=== PATIENT | male | born 1960 | race Caucasian/White ===

== ENCOUNTER → 2017-04-02 | Outpatient (CLI) | payer BC, OTHER ==
[~2017-04-02] MED LIST: COUMADIN7.5 MG PO; DIOVAN320 MG PO; HUMALOG100 UNIT/2 SQ; LANTUS SUBQ; MULTAQ 400 MG400 MG PO; NORVASC5 MG PO; PRAVACHOL40 MG PO; TOPROL XL25 MG PO
--- NOTE | ~2017-04-02 | EKG ---
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 Electronically Signed On 04-02-2017 12:52:16 CDT by Bishop Kohli [email or web address] <ELECTRONICALLY SIGNED> By: Bishop Kohli MD 04/02/17 1252 1037 Alicia Kohli MD /KIM
== END ==
LOC: CATH 06:50 → OR 09:41 → CATH 10:05 → OR 14:28
DX: I48.91 Unspecified atrial fibrillation (principal)

== ENCOUNTER 2017-06-15 06:47 | Observation (INO) | payer BC, OTHER ==
[~2017-06-15] VITALS: Ht 175.3 cm; Wt 99.2 kg
[2017-06-15] VITALS (10 sets, daily range): BP systolic 122–155; BP diastolic 70–80
--- NOTE | ~2017-06-15 | P ---
[facility] [place] [address] PROCEDURE REPORT Name: SARY ANDERS Room #: 219-P [facility] Roney M.RLucy#: [id number] Admission: 06/15/17 Attend Phys: Bishop Kohli MD Discharge: 06/16/17 Date of : 58 Report #: [id number] THIS REPORT FOR: //name// CC: Josh Arnold PREOPERATIVE DIAGNOSES: 1. Atrial fibrillation. 2. Atypical atrial flutter. PROCEDURES PERFORMED: 1. AFib ablation, CPT Code 23576. 2. 3D mapping, CPT Code 76733. 3. Intracardiac echocardiography, CPT code 66381. HISTORY: The patient is a 57-year-old male with a history of severe mitral regurgitation and atrial fibrillation who is status post mitral valve repair with a cryomaze procedure performed several years ago. More recently, he had a diagnosis of typical atrial flutter and underwent successful atrial flutter ablation by Dr. Becerra at [facility]. At that time, they also were able to induce typical AV cassius reentrant tachycardia. He had done well until recently when he started having recurrent arrhythmias. These appeared to be atrial flutter, but it is unclear if these were left or right-sided. He has failed antiarrhythmic drugs and he is here for a repeat ablation. ANESTHESIA: The patient underwent general anesthesia with no anesthesia-related complications. DESCRIPTION OF PROCEDURE: The patient underwent informed consent where we discussed the details of the procedure including the risks, which include but are not limited to bleeding, vascular damage, cardiac perforation, stroke, [place] as well as damage to the [place] conduction system requiring permanent pacemaker. He understood these risks and was willing to proceed. As such, he was brought to the EP laboratory in a fasting and sedated state and prepped and draped in a sterile fashion. I obtained access to the right femoral vein times 3, placing an 8-Romanian, 6-Romanian and 7-Romanian locking sheath into the right femoral vein using the modified Seldinger technique. At baseline, the patient was in atrial flutter with an atrial cycle length of 230 milliseconds. The flutter waves were positive in leads II, III and aVF. I placed a decapolar catheter into the coronary sinus. This was clearly a left-sided atrial flutter with the earliest atrial signal noted at CS3-4. I performed atrial entrainment from the CS9-10, CS1-2 and C3-4 and the PPI minus tachycardia cycle length was 100 milliseconds. Given that this appeared to be a left-sided atrial flutter, the patient was prepped for a transseptal An ICE catheter was placed into the right atrium and I created a 3D geometry using CartoSound with evidence of the left-sided veins [facility] [address] [place] [address] PROCEDURE REPORT Name: SARY ANDERS Room #: 219-P DEMIAN Colón#: [id number] Admission: 06/15/17 Attend Phys: Bishop Kohli MD Discharge: 06/16/17 Date of : 58 Report #: [id number] sharing almost a common ostium and then there were two right-sided veins. There was a large left atrial appendage. The patient was systemically heparinized and a transseptal was performed using an SL1 sheath and [place]ios needle. Next, I performed a 3D map of the left atrium and performed an activation map of the tachycardia. I also performed atrial entrainment from the pulmonary veins. The PPI minus tachycardia cycle length from the left-sided veins was 100 milliseconds. It was also 100 milliseconds from the right superior pulmonary vein, but pacing from the right inferior pulmonary vein the PPI minus tachycardia cycle length was 0. As such, it appeared that this was likely the location where this atrial flutter was occurring. However, there was clearly evidence that the left-sided veins and the right-sided veins were all reconnected. As such, I decided to re-isolate all the veins. Next, I exchanged the SL1 sheath for the cryo sheath and placed the cryoballoon into the left atrium. The left-sided veins required a total of 4 freezes with isolation with entrance and exit block noted. I turned my attention to the right superior pulmonary vein and I performed 2 freezes in this vein. The vein isolated within 100 seconds of the second freeze. Next, I turned my attention to the right inferior pulmonary vein and I performed two 4-minute freezes in this vein. Within 60 seconds of the first freeze of the right inferior pulmonary vein, the atrial flutter slowed and terminated. I made sure that on the right inferior pulmonary vein that I focused on isolating the inferior aspect of this vein as this was clearly where the breakthrough was occurring based on the Lasso at the beginning of the case. Now that the patient was in sinus rhythm, we performed a basic EP study and AV block was noted at 370 milliseconds, AV cassius ERP was noted at 320 milliseconds at a 500-millisecond basic drive cycle length. Triple atrial extrastimuli were delivered, and I could not induce any SVT nor any atrial flutters. Atrial burst pacing was performed down to 230 milliseconds and there was no AFib or atrial flutter. All veins were re-interrogated and demonstrated entrance and exit block. As such, the procedure was concluded. I verified using intracardiac ultrasound that there was no pericardial effusion. The patient received systemic protamine and once the ACT was within acceptable range, catheters and sheaths were pulled, hemostasis was obtained and the patient awoke neurologically and hemodynamically intact. CONCLUSIONS: 1. Successful atrial fibrillation ablation with re-isolation of the pulmonary veins. 2. Successful ablation of an atypical atrial flutter that was arising from the right inferior pulmonary vein. 3. Normal SA cassius function. 4. Normal AV cassius function. [facility] [address] [place] [address] PROCEDURE REPORT Name: SARY ANDERS VLAD Room #: 219-P [facility]..#: [id number] Admission: 06/15/17 Attend Phys: Bishop Kohli MD Discharge: 06/16/17 Date of : 58 Report #: [id number] 5. Normal His-Purkinje function. 6. No other inducible arrhythmias. <ELECTRONICALLY SIGNED> By: Bishop Kohli MD 06/26/17 1435 1120 0020 Bishop Kohli MD /nt
--- NOTE | ~2017-06-15 | D ---
[facility] [place] [address] DISCHARGE SUMMARY Name: SARY ANDERS Room #: 219-P [facility] Roney M.R.#: [id number] Admission: 06/15/17 Attend Phys: Bishop Kohli MD Discharge: 06/16/17 Date of : 58 Report #: [id number] THIS REPORT FOR: //name// CC: Josh Arnold DATE OF SERVICE: 06/16/2017 DISCHARGE DIAGNOSIS: Atypical atrial flutter arising from the right inferior pulmonary vein. PROCEDURES PERFORMED: Atypical atrial flutter ablation and isolation of the pulmonary veins. HISTORY OF PRESENT ILLNESS: The patient is a 57-year-old with a history of mitral valve repair with annuloplasty ring and surgical cryoablation performed in the past. He also has a history of typical atrial flutter ablation and AVNRT ablation performed at [facility] several years ago. The patient has had recurrent atrial arrhythmias despite antiarrhythmic drugs and was here for a repeat atrial flutter ablation. On EP study, he was found to have a left-sided atrial flutter that was found to be arising from the right inferior pulmonary vein. His other pulmonary veins had reconnected. I have therefore decided to isolate all veins once again. I isolated the left-sided vein and the right superior pulmonary vein, which demonstrated entrance and exit block. I then isolated the right inferior pulmonary vein and with isolation of this vein, his atypical atrial flutter converted to sinus rhythm. There were no other inducible arrhythmias noted. HOSPITAL COURSE: The patient was monitored overnight and did well. On telemetry, he remained in sinus rhythm. He was doing well without any chest pain or shortness of breath. His physical exam was within normal limits with a normal heart exam. Lungs were clear and his groin showed no significant bruising or hematoma. As such, he was deemed stable for discharge home and we will continue on his home medications, which include Multaq and Pradaxa 150 twice a day. We will see him back in 3 months to discontinue his Multaq therapy. <ELECTRONICALLY SIGNED> By: Bishop Kohli MD 06/19/17 1313 [id number] 0913 Bishop Kohli MD /nt
[2017-06-15 07:45] LABS: ABSOLUTE NEUTROPHILS 3.3 thou/uL (1.4-8.2); EOSINOPHILS 1.8 % (0.0-3.0); HEMATOCRIT 42.5 % (42.0-52.0); HEMOGLOBIN 14.1 gm/dL (14.0-18.0); LYMPHOCYTES 27.1 % (24.0-44.0); MCH 29.6 pg (26.0-34.0); MCHC 33.2 g/dL (28.0-37.0); MONOCYTES 11.3 % (1.0-8.0); PLATELET COUNT 173 thou/uL (150-400); POLYS 58.8 % (36.0-66.0); RBC 4.77 mil/uL (4.50-6.00); WBC 5.7 thou/uL (4.0-11.0)
[2017-06-15] MEDS ORDERED: LASIX 20 MG TAB20 MG PO (07:45)
[2017-06-15 07:46] LABS: MANUAL DIFF NO
[2017-06-15] MEDS ORDERED: TRESIBA FL100 UNIT/1 INJECTION (07:47)
[2017-06-15] MEDS ORDERED: POTASSIUM CHLO10 MEQ PO (07:49)
[2017-06-15 07:52] LABS: CALCIUM 8.8 mg/dL (8.5-10.1); CREATININE 0.9 mg/dL (0.7-1.3)
[2017-06-15] MEDS ORDERED: PRADAXA150 MG PO (07:52)
[2017-06-15 07:59] LABS: ALBUMIN 3.5 g/dL (3.4-5.0); TOTAL PROTEIN 6.5 g/dL (6.4-8.2)
[2017-06-15 08:11] LABS: PROTIME 10.7 Seconds (9.3-11.4)
[2017-06-16 03:02] VITALS: BP 130/73
[2017-06-16 04:00] VITALS: BP 130/73
[2017-06-16 09:26] VITALS: BP 130/73
[2017-06-16 09:30] VITALS: BP 130/73
== END 2017-06-16 12:13 | disposition home or self-care (01) ==
LOC: CATH 06:47 → 2N 13:58 → CATH 15:02 → 2N 06-16 12:13
PROVIDERS: Internal Medicine Cardiovascular Disease
DX: I48.91 Unspecified atrial fibrillation (principal); I48.4 Atypical atrial flutter
CPT/HCPCS: 62110; 62900; 70005